=== PATIENT | male | born 1955 | race Caucasian/White ===

== ENCOUNTER 2017-03-15 10:05 | Emergency (ER) | payer MEDICARE ==
[2017-03-15 12:24] LABS: APPEARANCE,URINE CLEAR; BILIRUBIN,URINE NEGATIVE (NEGATIVE); COLOR,URINE STRAW; GLUCOSE, URINE NEGATIVE (NEGATIVE); KETONES,URINE NEGATIVE (NEGATIVE); LEUKOCYTE ESTERASE,URINE NEGATIVE (NEGATIVE); NITRITE,URINE NEGATIVE (NEGATIVE); PROTEIN,URINE NEGATIVE (NEGATIVE); URINE SPECIFIC GRAVITY 1.005; UROBILINOGEN,URINE NEGATIVE mg/dL (<2.0)
[2017-03-15] MEDS ORDERED: KETOROLAC TROMETHAMINE 60 MG/2 ML SDV IM ONE (12:26)
[2017-03-15] MEDS ORDERED: DEXAMETHASONE SOD PHOS INJ 10 MG/1 ML VIAL IM ONE (12:26)
--- NOTE | 2017-03-15 13:03 | RADIOLOGY REPORT (SQ) ---
EXAM DESCRIPTION: L SPINE WHOLE COMPLETED DATE/TIME: 03/15/2017 12:56 pm REASON FOR STUDY: low back pain COMPARISON: None. NUMBER OF VIEWS: Five views including obliques. TECHNIQUE: AP, lateral, oblique, and sacral radiographic images acquired of the lumbar spine. LIMITATIONS: None. FINDINGS: MINERALIZATION: Normal. SEGMENTATION: Normal. No transitional anatomy. ALIGNMENT: Normal. VERTEBRAE: Maintained height. No fracture or worrisome bone lesion. DISCS: Multilevel disc space narrowing with osteophytes. POSTERIOR ELEMENTS: Pedicles and facets are intact. No pars defect or posterior arch defects. Facet arthropathy is present. HARDWARE: None in the spine. PARASPINAL SOFT TISSUES: Normal. PELVIS: Intact as visualized. No fractures or worrisome bone lesions. SI joints intact. OTHER: No other significant finding. IMPRESSION: SPONDYLOSIS WITHOUT BONE LESION OR FRACTURE. TECHNICAL DOCUMENTATION: JOB ID: [id number] [employer]- All Rights Reserved
--- NOTE | 2017-03-15 13:08 | ER Document Report ---
ED Extremity Problem, Lower - General Chief Complaint: Leg Pain Stated Complaint: LEG PAIN Time Seen by Provider: 03/15/17 12:17 Notes: 61 yo male c/o pain to left lower back radiating to left hip and knee x 3 weeks. no relief with 800mg Motrin. hx/o arthritis. no previous similar pain. denies fever, bowel/bladder dysfunction, paresthesias. no hx/o cancer, recent trauma or spinal injections TRAVEL OUTSIDE OF THE [place] IN LAST 30 DAYS: No - HPI Patient complains to provider of: Pain Location: Back, Buttock, Knee Onset/Duration: Gradual, Persistent Recent injury: No Exacerbated by: Movement, Walking Relieved by: Nothing - Related Data Allergies/Adverse Reactions: No Known Allergies Allergy (Unverified 03/15/17 10:06) Past Medical History - General Information source: Patient - Social History Smoking Status: Former Smoker Frequency of alcohol use: None Drug Abuse: None Lives with: Family Family History: Reviewed & Not Pertinent Patient has suicidal ideation: No Patient has homicidal ideation: No Renal/ Medical History: Denies: Hx Peritoneal Dialysis Review of Systems - Review of Systems Constitutional: No symptoms reported EENT: No symptoms reported Cardiovascular: No symptoms reported Respiratory: No symptoms reported Gastrointestinal: No symptoms reported Genitourinary: No symptoms reported Male Genitourinary: No symptoms reported Musculoskeletal: See HPI, Back pain Skin: No symptoms reported Hematologic/Lymphatic: No symptoms reported Neurological/Psychological: No symptoms reported Physical Exam - Vital signs Vitals: Temp Pulse Resp BP Pulse Ox 97.7 F 69 16 131/85 H 99 03/15/17 10:10 03/15/17 10:10 03/15/17 10:10 03/15/17 10:10 03/15/17 10:10 Interpretation: Normal - General General appearance: Appears well, Alert - HEENT Head: Normocephalic, Atraumatic Eyes: Normal Pupils: PERRL - Respiratory Respiratory status: No respiratory distress Chest status: Nontender Breath sounds: Normal Chest palpation: Normal - Cardiovascular Rhythm: Regular Heart sounds: Normal auscultation Murmur: No - Abdominal Inspection: Normal Distension: No distension Bowel sounds: Normal Tenderness: Nontender Organomegaly: No organomegaly - Back Back: Tender - left lumbar paraspinal tenderness, left SI tender. neg SLT, neg heel/toe - Extremities General upper extremity: Normal inspection, Nontender, Normal color, Normal ROM , Normal temperature General lower extremity: Normal inspection, Nontender, Normal color, Normal ROM , Normal temperature, Normal weight bearing. No: Elan's sign - Neurological Neuro grossly intact: Yes Cognition: Normal Orientation: AAOx4 Shay Coma Scale Eye Opening: Spontaneous Shay Coma Scale Verbal: Oriented Shay Coma Scale Motor: Obeys Commands [place] Coma Scale Total: 15 Speech: Normal Motor strength normal: LUE, RUE, LLE, RLE Sensory: Normal - Psychological Associated symptoms: Normal affect, Normal mood - Skin Skin Temperature: Warm Skin Moisture: Dry Skin Color: Normal Course - Re-evaluation Re-evalutation: 03/15/17 13:06 pt presents with acute low back pain w/o s/s spinal cord compression, cauda equina, infection, aneurysm or other serious etiology. pt is neurologically intact, independantly and steadily ambulatory 03/15/17 13:09 03/15/17 13:24 xray showing some disc narrowing with osteophytes and spondylosis. results reviewed with pt. Given that the patient has no neurologic deficits and the extremely low risk of other serious etiology, pt is stable for discharge. Home care, F/U with PCP, ED return precautions discussed. Pt agreeable with plan. - Vital Signs Vital signs: Temp Pulse Resp BP Pulse Ox 97.7 F 69 16 131/85 H 99 03/15/17 10:10 03/15/17 10:10 03/15/17 10:10 03/15/17 10:10 03/15/17 10:10 Discharge - Discharge Clinical Impression: Left-sided low back pain with sciatica Qualifiers: Chronicity: acute Sciatica laterality: sciatica of left side Qualified Code(s) : M54.42 - Lumbago with sciatica, left side Condition: Stable Disposition: HOME, SELF-CARE Instructions: Sciatica ([facility]), Steroid Medication Injection, Steroid Medication , Toradol Injection ([facility]) Additional Instructions: take medications as prescribed recommend topical analgesic such as Aspircreme Lidocaine Patch Follow up with your primary care for further evaluation and treatment Prescriptions: Methocarbamol [Robaxin 500 Mg Tablet] 1,000 mg PO Q6 #30 tablet Prednisone [Deltasone 10 mg Tablet] 10 mg PO ASDIR PRN #21 tablet PRN Reason:
[2017-03-15] MEDS ORDERED: LIDOCAINE 5% (700 MG) TRANSDERMAL ADH..PATCH TP ONE (13:27)
[2017-03-15 14:03] VITALS: BP 144/78
== END 2017-03-15 14:03 | disposition home or self-care (01) ==
LOC: ER 10:05
DX: M54.42 Lumbago with sciatica, left side (principal); M25.552 Pain in left hip; M25.562 Pain in left knee; Z87.891 Personal history of nicotine dependence
CPT/HCPCS: 99284; 96372; 81001; 72110; J1885; J1100